=== PATIENT | male | born 2000 | race Caucasian/White ===

== ENCOUNTER 2022-02-14 03:04 | Emergency (ER) | payer BC ==
[~2022-02-14] VITALS: Ht 167.6 cm; Wt 60.0 kg
[2022-02-14] MEDS ORDERED: HALOPERIDOL LACTATE 5MG/ML VIAL IM ONE (03:45)
[2022-02-14 04:39] LABS: BASOPHILS % 0.8 % (0.0-2.0); EOSINOPHILS % 0.1 % (0.0-5.0); HEMATOCRIT. 43.4 % (42.0-52.0); HEMOGLOBIN. 15.2 g/dL (14.0-18.0); LYMPHOCYTES % 26.9 % (20.0-50.0); MEAN CORPUSCULAR HEMOGLOBIN 29.9 pg (28.0-32.0); MEAN CORPUSCULAR VOLUME 85.1 fL (80.0-94.0); MONOCYTES % 8.8 % (2.0-8.0); NEUTROPHILS % 63.4 % (40.0-76.0); PLATELET 226 x1000/uL (130-400); RED CELL DISTRIBUTION WIDTH 13.1 % (11.6-14.6)
[2022-02-14 04:49] LABS: CHLORIDE 113 mEq/L (98-107)
[2022-02-14 04:55] LABS: ETHANOL BLOOD 270 mg/dL
[2022-02-14 04:57] LABS: CLARITY URINE CLEAR (CLEAR); COLOR URINE YELLOW (YELLOW); KETONES URINE NEGATIVE (NEGATIVE); LEUKOCYTE ESTERASE URINE NEGATIVE (NEGATIVE); NITRITE URINE NEGATIVE (NEGATIVE); OCCULT BLOOD URINE NEGATIVE (NEGATIVE); PROTEIN URINE NEGATIVE (NEGATIVE); SPECIFIC GRAVITY URINE 1.007 (1.005-1.030); UROBILINOGEN URINE 0.2 E.U./dL (0.2-1.0)
[2022-02-14 05:07] LABS: *AMPHETAMINES SCREEN URINE NEGATIVE (NEGATIVE)
[2022-02-14 05:08] LABS: *BARBITURATES SCREEN URINE NEGATIVE (NEGATIVE); *BENZODIAZEPINES SCREEN URINE NEGATIVE (NEGATIVE); *COCAINE SCREEN URINE NEGATIVE (NEGATIVE); METHADONE URINE SCREEN NEGATIVE (NEGATIVE); OPIATES URINE SCREEN NEGATIVE (NEGATIVE); PHENCYCLIDINE URINE SCREEN NEGATIVE (NEGATIVE)
[2022-02-14 05:09] LABS: CANNABINOID URINE SCREEN NEGATIVE (NEGATIVE)
[2022-02-14] MEDS ORDERED: POTASSIUM CHLORIDE INJ 40 MEQ in DEXT 5% WATER 250 ML IV ONE (05:45)
[2022-02-14] MEDS: KCL 20MEQ/100ML X 2 FOR TOTAL KCL 40MEQ/200ML IV SCH ×2 (06:30→08:00)
[2022-02-14] MEDS ORDERED: POTASSIUM CHLORIDE 20MEQ TABLET SR PO SCH (06:45)
[2022-02-14 12:00] VITALS: BP 118/71
== END 2022-02-14 12:53 | disposition home or self-care (01) ==
LOC: ER 03:04
DX: R45.851 Suicidal ideations (principal); F10.129 Alcohol abuse with intoxication, unspecified; Y90.8 Blood alcohol level of 240 mg/100 ml or more; R07.9 Chest pain, unspecified; R10.9 Unspecified abdominal pain; R41.82 Altered mental status, unspecified; F91.9 Conduct disorder, unspecified; J98.01 Acute bronchospasm; Z20.822 Contact with and (suspected) exposure to COVID-19
CPT/HCPCS: 36415; 80053; 80305; 80307; 80320; 80329; 81003; 83690; 85025; 93005; 96372; 99285; C9803; J1630; U0003; U0005; J3480; G0480